=== PATIENT | male | born 1975 | race Hispanic/Latino ===

== ENCOUNTER → 2021-04-28 | Day surgery (SDC) | payer OTHER ==
[~2021-04-28] MED LIST: CEFTRIAXONE 1 GM VIAL ONE; IOPAMIDOL 300MG/ML 50ML INFUS..BTL IV ONE; SODIUM CHLORIDE 0.9% 50ML 50 ML ONE
[2021-04-28 08:30] VITALS: BP 118/88
== END | disposition home or self-care (01) ==
LOC: OR 05:17
PROVIDERS: ATTEND Urology
DX: N13.2 Hydronephrosis with renal and ureteral calculous obstruction (principal); N39.0 Urinary tract infection, site not specified; R31.0 Gross hematuria; R35.1 Nocturia; I10 Essential (primary) hypertension; F41.9 Anxiety disorder, unspecified; R80.9 Proteinuria, unspecified; Z01.810 Encounter for preprocedural cardiovascular examination; Z01.812 Encounter for preprocedural laboratory examination; Z20.822 Contact with and (suspected) exposure to COVID-19
CPT/HCPCS: 50590; 74018; 93005; C1758; J0696; Q9967; U0002